=== PATIENT | female | born 1985 | race Caucasian/White ===

== ENCOUNTER 2024-08-03 19:29 | Emergency (ER) | payer BC, SELFPAY ==
[2024-08-03 19:34] VITALS: BP 144/91
[2024-08-03 19:56] VITALS: BMI 23.1
[2024-08-03 20:07] LABS: % Basophils 0.8 % (0-2); % Eosinophils 3.9 % (0-6); % Immature Granulocytes 0.2 % (0-0.5); % Lymphocytes 36.2 % (20.5-51.1); % Monocytes 8.9 % (1.7-9.3); Absolute Basophils 0.1 10^3/uL (0-0.2); Absolute Eosinophils 0.4 10^3/uL (0-0.7); Absolute Lymphocytes 3.3 10^3/uL (1.2-3.4); Absolute Monocytes 0.8 10^3/uL (0.1-0.6); Absolute Neutrophils 4.6 10^3/uL (1.4-6.5); Mean Corpuscular Hgb 31.3 pg (27.0-31.0); Mean Corpuscular Volume 89.3 fL (81.0-99.0); Mean Platelet Volume 9.4 fL (7.4-10.4); Nucleated Red Blood Cells % 0 %; Platelet Count 251 10^3/uL (130-400); Red Blood Cell Count 4.48 10^6/uL (4.20-5.40); Red Cell Dist. Width 12.5 % (11.5-14.5); White Blood Cell Count 9.2 10^3/uL (4.8-10.8)
[2024-08-03 20:10] LABS: Urine Albumin 1+ (Neg - Trace); Urine Bilirubin Negative (Negative); Urine Character Slightly Cloudy (Clear); Urine Color Yellow; Urine Glucose Negative (Negative); Urine Ketone Negative (Negative); Urine Leukocyte 2+ (Negative); Urine Nitrite Positive (Negative); Urine Occult Blood 3+ (Negative); Urine Urobilinogen Negative (Neg - 1+)
[2024-08-03 20:16] LABS: Urine White Cell >100 /HPF (0-5)
[2024-08-03 20:20] LABS: HCG, Serum Qualitative Screen Negative
[2024-08-03 20:27] LABS: ALT (SGPT) 19 U/L (0-35); AST (SGOT) 28 U/L (14-36); Alkaline Phosphatase 36 U/L (38-126); Blood Urea Nitrogen 10 mg/dl (7-17); Calcium 10.1 mg/dl (8.4-10.2); Carbon Dioxide 28 mmol/L (22-30); Chloride 99 mmol/L (98-107); Estimated Creatinine Clearance 117 ml/min; Glucose 93 mg/dl (70-99); Potassium 4.5 mmol/L (3.5-5.1); Sodium 139 mmol/L (135-145); Total Bilirubin 0.5 mg/dl (0.2-1.3); Total Protein 7.8 g/dl (6.3-8.2); eGFR > 60.00
--- NOTE | 2024-08-03 20:33 | ED.GENMED ---
History of Present Illness
General
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
Source: patient
Exam Limitations: none
Time Seen by Provider: 08/03/24 19:48
Nursing documentation reviewed up to this point in time: agreed with
History of Present Illness
History of Present Illness:
The patient is a very pleasant 39-year-old female who reports lower abdominal pressure, burning when she urinates, and now right lower back pain. Patient reports that the symptoms started about 5 days ago. She reports the back pain started today.
She describes it as an achy pain in her right back. She denies nausea, vomiting fevers and chills. She reports she has had a urinary tract infection many years ago and this feels similar. She denies any history of kidney stones.
Past History
Past History
ED Past Medical History: None
ED Past Surgical History:
Social History
Tobacco: Non-smoker
Alcohol: Other
Drug: None
Personal:
Living: with family
Employment: Other
Family History
Family History: Other
Review of Systems
Review of Systems
Allergies reviewed?: Yes
All Other Systems: ROS reviewed and negative except as documented in HPI and ROS
Constitutional: Reports no symptoms
EENT: Reports no symptoms
Respiratory: Reports no symptoms
Cardiac: Reports no symptoms
ABD/GI: Reports abdominal pain
: Reports dysuria and flank pain
Musculoskeletal: Reports no symptoms
Skin: Reports no symptoms
Neurological: Reports no symptoms
Endocrine: Reports no symptoms
Hematologic/Lymphatic: Reports no symptoms
Psychiatric: Reports no symptoms
Phy Exam
Physical Exam
Physical Exam:
Physical Exam
General: no apparent distress, not acutely ill
Neck: supple. no meningeal signs. normal psoterior pharynx
Heart: s1/s2 regular rate and rhythm, no murmur. equal radial pulses.
Lungs: no acute respiratory distress. clear bilaterally
Abdomen: normal bowel sounds. Mild lower abdominal tenderness. Mild right flank tenderness.
Neuro: alert and oriented. no focal neurological deficits
Skin: no rash
Psychiatric: well kept. interactive and cooperative
Extremities: no edema. no calf tenderness. negative homans. good distal pulses
Course
Orders/Labs/Results
Orders:
Orders
08/03/24 19:43
Test Result ONCE
08/03/24 19:56
Complete Blood Count/With Diff Urgent
Comprehensive Metabolic Panel Urgent
HCG, Serum Qualitative Screen Urgent
Urinalysis Reflex To Culture Urgent
Date Specimen was Collected: 08/03/24
Time Specimen was Collected: 19:43
Urine Microscopic Reflex Cult Urgent
Urine Culture Urgent
CHARITY Source: U
Specimen Description:
Date Specimen was Collected: 08/03/24
Time Specimen was Collected: 19:43
08/03/24 20:41
Ciprofloxacin HCl [Cipro] 500 mg PO NOW STA
08/03/24 20:42
Acetaminophen [Tylenol] 1,000 mg PO NOW STA
Abnormal Lab Results
08/03/24
19:56
MCH 31.3 H pg
(27.0-31.0)
Absolute Monos (auto) 0.8 H 10^3/uL
(0.1-0.6)
Alkaline Phosphatase 36 L U/L
(38-126)
Ur Occult Blood Reflex 3+ A
(Negative)
Urine Nitrite (Reflex) Positive A
(Negative)
Leukocyte Esterase Rfl 2+ A
(Negative)
Urine WBC (Reflex) >100 A /HPF
(0-5)
Urine Albumin (Reflex) 1+ A
(Neg - Trace)
08/03/24 19:56
08/03/24 19:56
Vital Signs
Initial and Last Documented VS:
Initial Vital Signs
Temp Pulse Resp BP Pulse Ox
98.1 F 80 18 144/91 100
08/03/24 19:34 08/03/24 19:34 08/03/24 19:34 08/03/24 19:34 08/03/24 19:34
Last Documented Vital Signs
Temp Pulse Resp BP Pulse Ox
98.1 F 72 16 126/89 100
08/03/24 19:34 08/03/24 21:22 08/03/24 21:22 08/03/24 21:22 08/03/24 21:22
MDM/Problems Addressed
Differential Diagnosis Includes:
Acute UTI, pyelonephritis, acute renal colic, PID
MDM/Problems Addressed:
Patient presents with acute right flank pain and dysuria
Acute Exacerbation and/or Progression of Chronic Illness:
Patient is acutely hypertensive, likely due to mild discomfort and anxiety
*Pulse Oximetry
Patient hypoxic: no
*EKG
Interpreted by ED Provider?: NA
*Seo Specialist Interpretation
Rate: Seo Specialist- N/A
*Critical Care Note
Total Time (30-74mins, 75-104mins- exclusive of procedures): Not Applicable
Data Reviewed
Source: patient
Patient Management
Social determinants of health affecting care: Living situation and Strong social support
Escalation/DeEscalation of care consider admission/obs:
Patient looks well and comfortable. She has no fever or elevated white blood cell count. She has no sharp pain to suggest kidney stone. She has no right lower abdominal pain to suggest acute appendicitis. Patient states she has been for
19 years and is not worried about an STD. She denies vaginal discharge.
ED Attending Note
-
Portions of this chart may have been created with voice recognition software.� Occasional wrong word or��sound alike� substitutions may have occurred due to the inherent limitations of voice recognition software.
Discharge Plan
Departure
Patient Disposition: Home (Routine Discharge)
Date of Disposition: 08/03/24
Time of Disposition: 20:43
Patient with high blood pressure during this ER visit?: Yes
Condition: Good
Covid-19: Not Applicable
Discharge Problem:
Pyelonephritis
Instructions: Urinary Tract Infection, Adult (DC), BLOOD PRESSURE
Prescriptions:
New
ciprofloxacin HCl [Cipro] 250 mg tablet
250 mg PO BID Qty: 13 0RF
No Action
Multi Tablet
1 tab PO DAILY
sennosides-docusate sodium 1 TABLET tablet
1 tab PO DAILYPRN PRN (Reason: constipation) Qty: 60 0RF
hydromorphone 2 MG tablet
2 mg PO Q4HPRN PRN (Reason: moderate pain) Qty: 30 0RF
ferrous sulfate [FeroSul] 325 MG tablet
325 mg PO BID Qty: 180 0RF
Activity Restrictions/Additional Instructions:
Take 1000 mg Tylenol every 4-6 hours for pain. Please return with vomiting or high fevers.
Interventions
Interventions:
*Risk Screen - Suicide Last Done: 08/03/24 19:34
*General Assessment Last Done: 08/03/24 19:34
*Neglect/Abuse Screening Last Done: 08/03/24 19:34
ED- Fall Risk Assessment Last Done: 08/03/24 19:56
*ED COVID-19 Vaccine History Last Done: 08/03/24 19:56
*Nursing Disposition Last Done: 08/03/24 21:30
ED-Female Genitourinary Assessment Last Done: 08/03/24 19:56
Discharge Date and Time
Discharge Date/Time: 08/03/24 21:30
Print Language: CITIZEN OF [place]
[2024-08-03] MEDS: CIPRO 500 MG PO (21:19)
[2024-08-03] MEDS: TYLENOL 1000 MG PO (21:19)
[2024-08-03 21:22] VITALS: BP 126/89
== END 2024-08-03 21:30 | disposition home or self-care (01) ==
LOC: EMR 19:29
PROVIDERS: EMERGENCY PHYSICIAN Emergency Medicine; FAMILY PHYSICIAN Family Medicine
DX: N12 Tubulo-interstitial nephritis, not specified as acute or chronic (principal)
CPT/HCPCS: 99283; 80053; 81003; 81015; 84703; 85025; 87077; 87086

== ENCOUNTER 2024-12-17 11:44 | Emergency (ER) | payer BC, SELFPAY ==
[2024-12-17 11:45] VITALS: BP 144/98
--- NOTE | 2024-12-17 12:54 | ED.GENMED ---
History of Present Illness
General
Chief Complaint: Facial Problem
Time Seen by Provider: 12/17/24 12:36
History of Present Illness
History of Present Illness:
39-year-old female without any significant past medical history presenting to the emergency department for pain and swollen lymph nodes to the right ear. Notes that she woke up acutely with the pain this morning. Denies any injury to the ear.
Denies pain inside the ear. Denies any fever. Denies any recent swimming or submersion. She reports pain behind the ear and into the outside of the ear. Denies ever having this in the past. Also notes that for the past 3 weeks she has had very
dry lips of unclear etiology. Denies throat pain. Does note that several months ago she was having some night sweats which have since resolved. Denies any unintentional weight loss. Does note some family history of lymphoma. Denies additional
acute medical complaints
Past History
Past History
ED Past Medical History: None
ED Past Surgical History:
Social History
Tobacco: Non-smoker
Alcohol: Other
Drug: None
Personal:
Living: with family
Employment: Other
Family History
Family History: Other
Phy Exam
Physical Exam
Physical Exam:
General: Well-appearing, no clinical signs of dehydration, nontoxic and in no acute distress
HEENT: protecting airway, no oropharyngeal swelling. Generalized tenderness to the right external ear with multiple tender small lymph nodes including lymph nodes behind the ear with generalized tenderness to the mastoid area. No erythema, no
rashes.
Neck: appears supple
CV: Normal heart rate, regular rhythm
Resp: No accessory muscle use, no increased work of breathing, lungs clear to auscultation bilaterally
Abd: Soft and non-distended, no tenderness to palpation, normal bowel sounds
Extremities: No deformities, no swelling, no erythema, pulses and sensation intact
Neuro: alert, no focal neurologic deficit
: deferred
Rectal: deferred
Psych: Normal affect
Skin: Intact
Course
Orders/Labs/Results
Orders:
Orders
12/17/24 12:52
CT Sinuses W/o Iv Contrast Urgent
Comment:
Reason For Exam: R-ear pain, swollen lymph nodes
12/17/24 12:53
Test Result ONCE
12/17/24 13:15
Complete Blood Count/With Diff Urgent
Comprehensive Metabolic Panel Urgent
HCG, Serum Qualitative Screen Urgent
Abnormal Lab Results
12/17/24
13:15
Glucose 100 H mg/dl
(70-99)
12/17/24 13:15
12/17/24 13:15
Vital Signs
Initial and Last Documented VS:
Initial Vital Signs
Temp Pulse Resp BP Pulse Ox
98.0 F 90 16 144/98 100
12/17/24 11:45 12/17/24 11:45 12/17/24 11:45 12/17/24 11:45 12/17/24 11:45
Last Documented Vital Signs
Temp Pulse Resp BP Pulse Ox
98.0 F 90 16 144/98 100
12/17/24 11:45 12/17/24 11:45 12/17/24 11:45 12/17/24 11:45 12/17/24 11:45
MDM/Problems Addressed
MDM/Problems Addressed:
39-year-old female without significant past medical history presenting for right ear pain and swollen lymph nodes. Vital signs are normal
On exam patient is well-appearing, nontoxic. Patient does have generalized tenderness to the right external ear and mastoid region with multiple tender lymph nodes. Normal appearance to the inner ear. Suspect possible otitis externa, however
given acute nature of symptoms with no preceding incident, will screen with laboratory analysis. Patient does note some family history of lymphoma. Will also obtain a CT imaging of the face to rule out mass or additional abnormal process, and rule
out mastoiditis.
14:20 - Labs are unremarkable. CT without acute abnormality. Unclear etiology of patient's tender lymphadenopathy. Given generalized tenderness, will treat as an otitis externa. Will prescribe drops. Otherwise advised outpatient ENT follow-up.
Results provided including CT imaging and laboratory analysis. Return precautions discussed
*Critical Care Note
Total Time (30-74mins, 75-104mins- exclusive of procedures): Not Applicable
ED Attending Note
-
Portions of this chart may have been created with voice recognition software.� Occasional wrong word or��sound alike� substitutions may have occurred due to the inherent limitations of voice recognition software.
Discharge Plan
Departure
Prescriptions:
No Action
Multi Tablet
1 tab PO DAILY
sennosides-docusate sodium 1 TABLET tablet
1 tab PO DAILYPRN PRN (Reason: constipation) Qty: 60 0RF
hydromorphone 2 MG tablet
2 mg PO Q4HPRN PRN (Reason: moderate pain) Qty: 30 0RF
ferrous sulfate [FeroSul] 325 MG tablet
325 mg PO BID Qty: 180 0RF
ciprofloxacin HCl [Cipro] 250 mg tablet
250 mg PO BID Qty: 13 0RF
cefdinir 300 mg capsule
300 mg PO BID Qty: 14 0RF
Referrals:
Dang Sanford, DO [Family Provider] -
Interventions
Interventions:
*Risk Screen - Suicide Last Done: 12/17/24 11:45
*General Assessment Last Done: 12/17/24 11:45
*ED COVID-19 Vaccine History Last Done: 12/17/24 11:45
ED- Neurological Assessment Last Done: 12/17/24 13:10
ED-Skin Assessment Last Done: 12/17/24 13:10
Discharge Date and Time
Print Language: SWED[place]
[2024-12-17 13:21] LABS: % Eosinophils 1.6 % (0-6); % Immature Granulocytes 0.2 % (0-0.5); % Lymphocytes 33.9 % (20.5-51.1); % Monocytes 9.3 % (1.7-9.3); Absolute Basophils 0.1 10^3/uL (0-0.2); Absolute Eosinophils 0.1 10^3/uL (0-0.7); Absolute Lymphocytes 1.7 10^3/uL (1.2-3.4); Absolute Monocytes 0.5 10^3/uL (0.1-0.6); Absolute Neutrophils 2.7 10^3/uL (1.4-6.5); Hematocrit 41.9 % (37.0-47.0); Hemoglobin 14.5 g/dL (12.0-16.0); Mean Corp Hgb Conc. 34.6 g/dL (33.0-37.0); Mean Corpuscular Hgb 30.9 pg (27.0-31.0); Mean Corpuscular Volume 89.1 fL (81.0-99.0); Mean Platelet Volume 9.6 fL (7.4-10.4); Nucleated Red Blood Cells % 0 %; Platelet Count 226 10^3/uL (130-400); Red Cell Dist. Width 12.1 % (11.5-14.5)
[2024-12-17 13:32] LABS: HCG, Serum Qualitative Screen Negative
[2024-12-17 13:35] LABS: ALT (SGPT) 16 U/L (0-35); AST (SGOT) 21 U/L (14-36); Albumin 4.6 g/dl (3.5-5.0); Alkaline Phosphatase 41 U/L (38-126); Blood Urea Nitrogen 11 mg/dl (7-17); Calcium 9.8 mg/dl (8.4-10.2); Carbon Dioxide 27 mmol/L (22-30); Chloride 107 mmol/L (98-107); Glucose 100 mg/dl (70-99); Sodium 139 mmol/L (135-145); Total Bilirubin 0.8 mg/dl (0.2-1.3); Total Protein 7.5 g/dl (6.3-8.2); eGFR > 60.00
== END 2024-12-17 14:44 | disposition home or self-care (01) ==
LOC: EMR 11:44
PROVIDERS: EMERGENCY PHYSICIAN Student in an Organized Health Care Education/Training Program; FAMILY PHYSICIAN Family Medicine
DX: H60.91 Unspecified otitis externa, right ear (principal); R59.0 Localized enlarged lymph nodes
CPT/HCPCS: 99284; 70486; 80053; 84703; 85025